=== PATIENT | male | born 1995 | race Caucasian/White ===

== ENCOUNTER 2021-06-17 11:11 | Emergency (ER) | payer OTHER, SELFPAY ==
[2021-06-17 11:28] VITALS: BP 122/77; PULSE 76; RESP 18; TEMP 36.4; O2SAT 99
--- NOTE | 2021-06-17 11:57 | ED.URI ---
HPI - URI/Sore Throat General Chief Complaint: Upper Respiratory Infection Stated Complaint: Stuffy Nose,Sore throat,Headache Time Seen by Provider: 06/17/21 11:54 Source: patient and RN notes reviewed Mode of arrival: ambulatory Limitations: no limitations History of Present Illness HPI Narrative: 26 year old male presents with concern for nasal congestion, drainage, pressure, sore throat that started yesterday. Reports he has been vaccinated for COVID. He reports his girlgriend has similar symptoms. He has not taken any over the counter medications. He denies fever, body aches, chills, SOB, loss of taste or smell. Reports sweats over night. MD elicited complaint: nasal congestion Related Data Home Medications Medication Instructions Recorded Confirmed isotretinoin [Amnesteem] 40 mg PO BID 06/17/21 06/17/21 Allergies Allergy/AdvReac Type Severity Reaction Status Date / Time Penicillins Allergy Unknown Verified 06/17/21 11:38 Review of Systems Review of Systems: CONSTITUTIONAL: Denies malaise, chills, sweats, or fever. EYES: Denies visual changes, redness, or discharge. ENT: Reports rhinorrhea, congestion, sore throat. Denies sinus pain, otalgia CARDIOVASCULAR: Denies chest pain, palpitations, or edema. RESPIRATORY: Denies cough. Denies dyspnea. GASTROINTESTINAL: Denies abdominal pain, nausea, vomiting, diarrhea SKIN: Denies rash or itching. MUSCULOSKELETAL: Denies myalgia. NEUROLOGIC: Denies headache. All systems reviewed & are unremarkable except as noted in HPI and below PMFSH Comments At time of signature, agree with nursing past medical, surgical, social and family history. There is no relevant family history pertinent to the presenting complaint Exam Narrative: GENERAL: Well-appearing, well-nourished, and in no acute distress. HEAD: Normocephalic EYES: PERRLA, conjunctivae clear ENT: Nares clear, turbinates erythematous, clear discharge. Mucous membranes moist. TM pearly bill with sharp light reflex bilaterally; no tragal tenderness. Oropharynx not erythematous without lesions. Tonsils not enlarged and without exudate, no drooling, no hoarseness, no trismus, uvula midline. NECK: Supple. No lymphadenopathy CHEST: Clear to auscultation, breath sounds equal. No wheezing, rhonchi, rales, or stridor. No respiratory distress, speaks in full sentences. HEART: Regular rate and rhythm. No murmur heard. SKIN: Warm, dry, no rash. NEURO: Alert and oriented x3. PSYCH: Normal mood and affect Course Course Emergency Course: Patient is aware of diagnosis, understands and agrees to treatment plan. Anticipatory guidance given. Patient agrees to follow-up as directed and is aware of reasons to seek care at the emergency department. Portions of this record may have been created with voice recognition software Vital Signs Vital signs: Vital Signs Temperature 97.6 F 06/17/21 11:28 Pulse Rate 76 06/17/21 11:28 Respiratory Rate 18 06/17/21 11:28 Blood Pressure 122/77 06/17/21 11:28 Pulse Oximetry 99 06/17/21 11:28 Temperature 97.6 F 06/17/21 11:28 Pulse Rate 76 06/17/21 11:28 Respiratory Rate 18 06/17/21 11:28 Blood Pressure 122/77 06/17/21 11:28 Pulse Oximetry 99 06/17/21 11:28 Reviewed. MDM - URI/Sore Throat MDM Narrative Medical decision making narrative: Differential diagnosis considered: Michael virus, strep pharyngitis, allergic rhinitis, upper respiratory tract infection, sinusitis, rhinosinusitis, nasopharyngitis. viral pharyngitis, otitis media, otitis externa, pneumonia, bronchitis, viral cough syndrome, viral syndrome, and influenza. Exam findings show no acute concerns or changes; patient is non-toxic appearing and is in no distress. Patient is appropriate for outpatient treatment and follow-up. Lab Data Labs: Strep Screen Presumptive Negative *(Reference Range: Negative)* Critical Care Time Critical Care Time Cri
== END 2021-06-17 12:18 | disposition home or self-care (01) ==
PROVIDERS: Emergency Provider Nurse Practitioner
DX: J06.9 Acute upper respiratory infection, unspecified (principal)
CPT/HCPCS: 87081; 87880; 99203; G0463

== ENCOUNTER 2021-11-06 16:42 | Emergency (ER) | payer OTHER, SELFPAY ==
[2021-11-06 16:50] VITALS: BP 127/68; PULSE 72; RESP 18; TEMP 36.7; O2SAT 99
--- NOTE | 2021-11-06 17:01 | ED.URI ---
HPI - URI/Sore Throat General Chief Complaint: Upper Respiratory Infection Stated Complaint: Runny Nose,Stuffy Nose Time Seen by Provider: 11/06/21 17:00 Source: patient, RN notes reviewed and old records reviewed Mode of arrival: ambulatory Limitations: no limitations History of Present Illness HPI Narrative: 26 year old male who presents to [facility] care with complaints of rhinitis and stuffy nose. Patient reports that he was diagnosed with COVID on the 22 of October, he had sore throat, cough, and fatigue, and nasal congestion symptoms with illness. He reports that he has returned to work since his illness. Patient states that he continues to have nasal congestion and drainage and his nose gets so stuffed up at night he can't breath from his nose. Patient denies any chills body aches or any recent fevers. He denies any acute cough or any shortness of breath MD elicited complaint: rhinorrhea and nasal congestion Related Data Allergies Allergy/AdvReac Type Severity Reaction Status Date / Time No Known Allergies Allergy Verified 11/06/21 16:56 Review of Systems Review of Systems: CONSTITUTIONAL: Denies fever, chills, or sweats. EYES: Denies visual changes, redness, or discharge. ENT: Positive for rhinorrhea, congestion, no sore throat, or otalgia. CARDIOVASCULAR: Denies chest pain, palpitations, or edema. RESPIRATORY: Denies cough or dyspnea. GASTROINTESTINAL: Denies abdominal pain, nausea, vomiting, or diarrhea. GENITOURINARY: Denies dysuria or hematuria. SKIN: Denies rash or itching. MUSCULOSKELETAL: Denies back pain, joint pain, or myalgia. NEUROLOGIC: Denies headache, numbness, or weakness. PSYCHIATRIC: Denies anxiety or depression. All systems reviewed & are unremarkable except as noted in HPI and below PMFSH Past Medical History Medical History (Updated 11/06/21 @ 17:33 by Jayleen Craven NP) Acne COVID-19 Surgical History Surgical History (Updated 11/06/21 @ 17:01 by Jayleen Craven NP) History of tonsillectomy and adenoidectomy Family History Family History (Updated 11/06/21 @ 17:33 by Jayleen Craven NP) Grandparent Cerebrovascular accident Mother Diabetes mellitus Father Heart disease Social History Social History (Updated 11/06/21 @ 17:32 by MARIN Bonilla Smoking status: Never smoker Alcohol intake: current Alcohol use details: social Substance use: never Living arrangements: with family 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 There is no relevant family history pertinent to the presenting complaint Exam Narrative: GENERAL: Well-appearing, well-nourished, and in no acute distress. HEAD: Normocephalic, atraumatic. EYES: PERRLA and EOMI. ENT: Nares red with turbinates swollen,clear rhinorrhea no epistaxis. Mucous membranes moist.TM's normal with good light reflex, throat pink with no exudates or lesions tonsils absent NECK: Supple no lymphadenopathy. CHEST: Clear to auscultation. No respiratory distress.SAO2 99% on room air HEART: Regular rate and rhythm. No murmur heard. Normal peripheral pulses. ABDOMEN: Soft, nontender, nondistended, normal active bowel sounds. EXTREMITIES: Normal range of motion. No edema. SKIN: Warm, dry, no rash. NEURO: No focal deficits. Alert and oriented x3. Course Course Level of Care: Express Care Visit Vital Signs Vital signs: Vital Signs Temperature 36.7 C 11/06/21 16:50 Pulse Rate 72 11/06/21 16:50 Respiratory Rate 18 11/06/21 16:50 Blood Pressure 127/68 11/06/21 16:50 Pulse Oximetry 99 11/06/21 16:50 Temperature 36.7 C 11/06/21 16:50 Pulse Rate 72 11/06/21 16:50 Respiratory Rate 18 11/06/21 16:50 Blood Pressure 127/68 11/06/21 16:50 Pulse Oximetry 99 11/06/21 16:50 MDM - URI/Sore Throat Differenti
== END 2021-11-06 17:25 | disposition home or self-care (01) ==
PROVIDERS: Emergency Provider Registered Nurse; PCP Physician Assistant
DX: J06.9 Acute upper respiratory infection, unspecified (principal); Z86.16 Personal history of COVID-19
CPT/HCPCS: 99213; G0463